=== PATIENT | female | born 1960 | race Caucasian/White ===

== ENCOUNTER 2017-04-01 08:31 | Outpatient (CLI) | payer BC | END 2017-04-01 08:32 | disposition home or self-care (01) | LOC: BICULT 08:31 | PROVIDERS: ATTEND Otolaryngology Plastic Surgery within the Head & Neck | DX: E04.2 Nontoxic multinodular goiter (principal); D49.7 Neoplasm of unspecified behavior of endocrine glands and other parts of nervous system | CPT/HCPCS: 76536 ==

== ENCOUNTER 2017-07-15 13:49 | Outpatient (CLI) | payer BC | END 2017-07-15 13:50 | disposition home or self-care (01) | LOC: BICMAMMO 13:49 | PROVIDERS: ATTEND Family Medicine | DX: Z12.31 Encounter for screening mammogram for malignant neoplasm of breast (principal); Z80.3 Family history of malignant neoplasm of breast | CPT/HCPCS: 77063; 77067 ==

== ENCOUNTER 2018-04-28 08:17 | Outpatient (CLI) | payer BC ==
--- NOTE | 2018-04-28 09:11 | ULT ---
THYROID ULTRASOUND: History: Thyroid nodules. Comparison: 04-01-17 FINDINGS: Real-time imaging of the right and left globes of the gland were performed. The right lobe measures 1 .4 x 1.1 x 4.8 cm. The left lobe 0.8 x 1.2 x 4.4 cm. Small bilateral thyroid nodules are seen, one in the midpole region of the right lobe. It appears to be solid or complex cystic measuring 3 mm, also a lower pole complex nodule measuring 2 x 5 mm and on the left side a small 2 mm upper pole nodule is demonstrated. IMPRESSION: On the previous examination three small lower pole right lobe thyroid nodules were demonstrated where on the current examination only one definitive nodule is seen. The two other small nodules in the mid pole of the right lobe and upper pole of the left lobe were not definitely visualized on the prior ex amination but given their small size and appearance do not have any worrisome features. POS: [facility]
== END 2018-04-28 08:18 | disposition home or self-care (01) ==
LOC: BICULT 08:17
PROVIDERS: ATTEND Otolaryngology Plastic Surgery within the Head & Neck
DX: D49.7 Neoplasm of unspecified behavior of endocrine glands and other parts of nervous system (principal); E04.1 Nontoxic single thyroid nodule
CPT/HCPCS: 76536

== ENCOUNTER 2018-08-30 07:53 | Outpatient (CLI) | payer BC ==
--- NOTE | 2018-08-30 08:40 | MMO ---
Bilateral MAMMO Bilat Screen [facility]. CLINICAL HISTORY: Patient is 58 years old and is seen for screening. The patient has no family history of breast cancer. The patient has no personal history of cancer. VIEWS: The views performed were: bilateral craniocaudal with tomosynthesis and bilateral mediolateral oblique with tomosynthesis. FILMS COMPARED: The present examination has been compared to a prior imaging study performed at [facility] on 07/15/2017. MAMMOGRAM FINDINGS: There are scattered fibroglandular densities. Finding 1: There are stable benign appearing calcifications seen in both breasts. Finding 2: There is a stable nodule seen in the left breast. There are no suspicious masses, suspicious calcifications, or new areas of architectural distortion. IMPRESSION: THERE IS NO MAMMOGRAPHIC EVIDENCE OF MALIGNANCY. A ROUTINE FOLLOW-UP MAMMOGRAM IN 1 YEAR IS RECOMMENDED. THE RESULTS OF THIS EXAM WERE SENT TO THE PATIENT. ACR BI-RADS Category 2 - Benign finding MAMMOGRAPHY NOTE: 1. A negative mammogram report should not delay a biopsy if a dominant of clinically suspicious mass is present. 2. Approximately 10% to 15% of breast cancers are not detected by mammography. 3. Adenosis and dense breasts may obscure an underlying neoplasm.
== END 2018-08-30 07:54 | disposition home or self-care (01) ==
LOC: BICMAMMO 07:53
PROVIDERS: ATTEND Family Medicine
DX: Z12.31 Encounter for screening mammogram for malignant neoplasm of breast (principal)
CPT/HCPCS: 77063; 77067

== ENCOUNTER 2021-02-04 09:51 | Outpatient (CLI) | payer BC | END 2021-02-04 09:52 | disposition home or self-care (01) | LOC: BICMAMMO 09:51 | PROVIDERS: ATTEND Family Medicine | DX: Z12.31 Encounter for screening mammogram for malignant neoplasm of breast (principal) | CPT/HCPCS: 77063; 77067 ==

== ENCOUNTER 2022-03-30 12:20 | Outpatient (CLI) | payer BC | END 2022-03-30 12:21 | disposition home or self-care (01) | LOC: BICMAMMO 12:20 | PROVIDERS: ATTEND Family Medicine | DX: Z12.31 Encounter for screening mammogram for malignant neoplasm of breast (principal); E65 Localized adiposity | CPT/HCPCS: 77063; 77067 ==